=== PATIENT | female | born 1950 | race Two or more races ===

== ENCOUNTER 2025-01-24 13:06 | Inpatient (IN) | payer MEDICARE, OTHER ==
[~2025-01-24] VITALS: Ht 162.6 cm; Wt 67.6 kg
[2025-01-24 13:41] LABS: PLATELET COUNT (AUTO) 353 K/uL (150-450); RED BLOOD CELL COUNT(AUTO) 4.67 MIL/uL (4.0-5.2); RED CELL DISTRIBUTION WIDTH 14.7 % (11.5-15.0); WHITE BLOOD COUNT (AUTO) 7.6 K/uL (4.3-11.0)
[2025-01-24 13:50] LABS: CALCIUM, SERUM 9.1 mg/dL (8.5-10.1); CREATININE 0.6 mg/dL (0.6-1.3); SODIUM SERUM 138 mmol/L (136-145); UREA NITROGEN, BLOOD 15 mg/dL (7-18)
[2025-01-24 13:56] LABS: ASPARTATE AMINOTRANSFERASE 15 U/L (15-37); TOTAL PROTEIN, SERUM 7.6 g/dL (6.4-8.2)
[2025-01-24 13:59] LABS: LACTIC ACID 1.5 mmol/L (0.4-2.0)
[2025-01-24] MEDS ORDERED: SENN-261 PO (14:15)
[2025-01-24] MEDS ORDERED: DOCU100T2 PO (14:15)
[2025-01-24] MEDS ORDERED: BISA10SU11 RC (14:15)
[2025-01-24] MEDS ORDERED: CHOL100043 PO (14:15)
[2025-01-24] MEDS ORDERED: LACT1TAB20 PO (14:15)
[2025-01-24] MEDS ORDERED: ACET-73 PO (14:15)
[2025-01-24] MEDS ORDERED: LUBI8CAP PO (14:15)
[2025-01-24] MEDS ORDERED: CYAN500T9 PO (14:15)
[2025-01-24] MEDS ORDERED: METH1POW PO (14:15)
[2025-01-24] MEDS ORDERED: NA P133E RC (14:15)
[2025-01-24] MEDS ORDERED: FOLI0.4T6 PO (14:15)
[2025-01-24] MEDS ORDERED: MAGN200T5 PO (14:15)
[2025-01-24] MEDS ORDERED: LISI2.5T2 PO (14:15)
[2025-01-24] MEDS ORDERED: AMLO10TA4 PO (14:15)
[2025-01-24] MEDS ORDERED: MAGN400O6 PO (14:15)
[2025-01-24] MEDS ORDERED: IPRA3AMP22 IH (14:15)
[2025-01-24] MEDS ORDERED: ATOR20TA PO (14:15)
[2025-01-24] MEDS ORDERED: ACET-868 PO (14:15)
[2025-01-24] MEDS ORDERED: BISACODYL SUPP (10 MG) 10 MG/SUPP.RECT SUPP.RECT RC PRN (15:00)
[2025-01-24] MEDS ORDERED: Z GUARD REMEDY 4 OZ OINT TP PRN (15:00)
[2025-01-24] MEDS ORDERED: ACETAMINOPHEN 325 MG TABLET PO PRN (15:00)
[2025-01-24] MEDS ORDERED: NA PHOS,M-B/NA PHOS,DI-BA 1 EA ENEMA RC PRN (15:00)
[2025-01-24] MEDS ORDERED: ONDANSETRON HCL/PF 4 MG/2 ML VIAL IVP PRN (15:00)
[2025-01-24] MEDS ORDERED: MAGNESIUM HYDROXIDE 30 ML UDC PO PRN ×2 (15:00)
[2025-01-24] MEDS ORDERED: MAG HYDROX/AL HYDROX/SIMETH 30 ML UDC PO PRN (15:00)
[2025-01-24 15:14] LABS: APPEARANCE,URINE CLOUDY (CLEAR); BLOOD, URINE 1+ Ery/uL (NEGATIVE); LEUKOCYTE ESTERASE ,URINE 2+ (NEGATIVE); NITRITE, URINE NEGATIVE (NEGATIVE); UGLUCOSE NEGATIVE (NEGATIVE)
[2025-01-24 15:24] LABS: ADD URINE CULTURE YES
[2025-01-24 15:25] LABS: URINE AMORPHOUS URATE Moderate /HPF (None Seen)
[2025-01-24] MEDS ORDERED: IPRATROPIUM NEB FS 0.5 MG/2.5 ML AMPUL.NEB NEB PRN (15:30)
[2025-01-24] MEDS ORDERED: ALBUTEROL FS 2.5 MG/3 ML VIAL.NEB NEB PRN (15:30)
[2025-01-24 16:00] VITALS: BP 124/71; TEMP 98.2; O2SAT 98
[2025-01-24] MEDS: ENOXAPARIN SODIUM 40 MG/0.4 ML DISP.SYRIN SQ SCH (16:59)
[2025-01-24] MEDS: SENNOSIDES 8.6 MG TABLET PO SCH (17:00)
[2025-01-24] MEDS ORDERED: Medication Not On Formulary EA (Lubiprostone (Amitiza) 8 MCG) PO SCH (17:00)
[2025-01-24] MEDS: IV NS 0.9% 1,000 ML IV PRN (19:52)
[2025-01-24 20:00] VITALS: BP 148/87; TEMP 98.1; O2SAT 97
[2025-01-24] MEDS: DOCUSATE SODIUM 100 MG CAPSULE PO SCH (21:09)
[2025-01-25 06:02] LABS: PLATELET COUNT (AUTO) 303 K/uL (150-450); RED BLOOD CELL COUNT(AUTO) 4.50 MIL/uL (4.0-5.2); RED CELL DISTRIBUTION WIDTH 15.0 % (11.5-15.0); WHITE BLOOD COUNT (AUTO) 7.5 K/uL (4.3-11.0)
[2025-01-25 06:09] LABS: CALCIUM, SERUM 8.8 mg/dL (8.5-10.1); CREATININE 0.7 mg/dL (0.6-1.3); PHOSPHORUS 3.6 mg/dL (2.5-4.9); SODIUM SERUM 142.0 mmol/L (136-145); UREA NITROGEN, BLOOD 11.0 mg/dL (7-18)
[2025-01-25 08:00] VITALS: BP 135/89; TEMP 97.2; O2SAT 98
[2025-01-25] MEDS: CHOLECALCIFEROL 1,000 UNIT TABLET (VIT D3) PO SCH (08:24)
[2025-01-25] MEDS: MAGNESIUM OXIDE 400 MG TABLET PO SCH (08:24)
[2025-01-25] MEDS: AMLODIPINE BESYLATE 10 MG TABLET PO SCH (08:25)
[2025-01-25] MEDS: LISINOPRIL (5MG) 5 MG TABLET PO SCH (08:25)
[2025-01-25] MEDS: CYANOCOBALAMIN 500 MCG TABLET PO SCH (08:25)
[2025-01-25] MEDS: FOLIC ACID 1 MG TABLET PO SCH (08:25)
[2025-01-25 16:00] VITALS: BP 142/85; TEMP 99; O2SAT 95
[2025-01-25 20:00] VITALS: BP 140/96; TEMP 98.6; O2SAT 96
[2025-01-25] MEDS: CEFTRIAXONE 1 G in IV D5W 50 ML IV SCH (20:35)
[2025-01-25] MEDS ORDERED: CEFTRIAXONE 1 G VIAL IM SCH (21:00)
[2025-01-25] MEDS ORDERED: CEFTRIAXONE 1 G VIAL IV SCH (21:00)
[2025-01-26 08:00] VITALS: BP 164/90; TEMP 97.9; O2SAT 99
[2025-01-26 16:00] VITALS: BP 132/80; TEMP 99; O2SAT 94
[2025-01-26 20:00] VITALS: BP 136/81; TEMP 98.2; O2SAT 95
[2025-01-26 23:51] VITALS: BP 136/81; TEMP 98.2; O2SAT 95
[2025-01-27 07:00] VITALS: BP 167/99; TEMP 97.7; O2SAT 97
[2025-01-27 09:43] LABS: PLATELET COUNT (AUTO) 292 K/uL (150-450); RED BLOOD CELL COUNT(AUTO) 5.08 MIL/uL (4.0-5.2); RED CELL DISTRIBUTION WIDTH 15.2 % (11.5-15.0); WHITE BLOOD COUNT (AUTO) 8.9 K/uL (4.3-11.0)
[2025-01-27 09:53] LABS: CALCIUM, SERUM 9.3 mg/dL (8.5-10.1); CREATININE 0.8 mg/dL (0.6-1.3); SODIUM SERUM 139.0 mmol/L (136-145); UREA NITROGEN, BLOOD 7.0 mg/dL (7-18)
[2025-01-27 16:00] VITALS: BP 138/85; TEMP 98.1; O2SAT 96
[2025-01-27 20:00] VITALS: BP 128/96; TEMP 98.8; O2SAT 96
[2025-01-28 07:30] VITALS: BP 156/88; TEMP 97.5; O2SAT 96
[2025-01-28] MEDS: ACETAMINOPHEN 325 MG TABLET PO PRN (11:37)
[2025-01-28 13:00] VITALS: BP 137/82
[2025-01-28] MEDS: METOPROLOL TARTRATE 25 MG TABLET PO ONE (13:00)
[2025-01-28] MEDS ORDERED: METO25TA6 PO (13:12)
[2025-01-28] MEDS ORDERED: METOPROLOL TARTRATE 25 MG TABLET PO SCH (17:00)
== END 2025-01-28 15:00 | DRG 689 ==
LOC: ER 13:18 → MED 15:09
PROVIDERS: ADMIT Internal Medicine; ATTEND Internal Medicine
DX: N39.0 Urinary tract infection, site not specified (principal); G93.41 Metabolic encephalopathy; E44.0 Moderate protein-calorie malnutrition; I69.354 Hemiplegia and hemiparesis following cerebral infarction affecting left non-dominant side; J98.11 Atelectasis; E86.0 Dehydration; R62.7 Adult failure to thrive; E78.5 Hyperlipidemia, unspecified; E88.09 Other disorders of plasma-protein metabolism, not elsewhere classified; I11.0 Hypertensive heart disease with heart failure; I50.9 Heart failure, unspecified; M24.574 Contracture, right foot; M24.575 Contracture, left foot; Z68.25 Body mass index [BMI] 25.0-25.9, adult; B96.89 Other specified bacterial agents as the cause of diseases classified elsewhere; E11.51 Type 2 diabetes mellitus with diabetic peripheral angiopathy without gangrene
CPT/HCPCS: 36415; 71045-TC; 80048-TC; 80076-TC; 81001; 83605-TC; 83690-TC; 83735-TC; 84100-TC; 84443-TC; 84484-TC; 85025-TC; 87086-TC; 92526; 92611; A4223; G0378; J0696; J1650; J7030; J7060